=== PATIENT | male | born 1980 | race Caucasian/White ===

== ENCOUNTER 2017-03-18 08:42 | Emergency (ER) | payer SELFPAY ==
[~2017-03-18] VITALS: Ht 165.1 cm; Wt 57.4 kg
[2017-03-18] MEDS ORDERED: SODIUM CHLORIDE 0.9% 1,000ML IVBOLUS ONE (09:30)
[2017-03-18] MEDS ORDERED: DIPH,PERTUSS(ACELL),TET VAC/PF 0.5 ML IM-VACC ONE ×2 (09:30→09:58)
[2017-03-18] MEDS ORDERED: SODIUM CHLORIDE FLUSH 10ML SYR IVF ONE (09:30)
[2017-03-18] MEDS ORDERED: ONDANSETRON 2MG/ML, 2ML ONE (09:58)
[2017-03-18] MEDS ORDERED: MORPHINE SULFATE 4 MG/ML, 1ML ONE (09:58)
[2017-03-18] MEDS ORDERED: ONDANSETRON 2MG/ML, 2ML IVPush ONE (10:00)
[2017-03-18] MEDS ORDERED: MORPHINE SULFATE 4 MG/ML, 1ML IV PRN (10:00)
[2017-03-18] MEDS ORDERED: AMPICILLIN/SULBACTAM 3 GM in SODIUM CHLORIDE 0.9% 100 ML IVPB ONE (10:00)
[2017-03-18 10:10] LABS: BLOOD UREA NITROGEN 12 mg/dL (7-18)
[2017-03-18 11:24] VITALS: BP 135/90
== END 2017-03-18 12:04 | disposition home or self-care (01) ==
LOC: ED 11:59
DX: S62.202A Unspecified fracture of first metacarpal bone, left hand, initial encounter for closed fracture (principal); S62.301A Unspecified fracture of second metacarpal bone, left hand, initial encounter for closed fracture; L03.114 Cellulitis of left upper limb; F12.10 Cannabis abuse, uncomplicated; F17.210 Nicotine dependence, cigarettes, uncomplicated; W51.XXXA Accidental striking against or bumped into by another person, initial encounter; Y93.89 Activity, other specified; Y92.89 Other specified places as the place of occurrence of the external cause; Y99.8 Other external cause status
CPT/HCPCS: 29125; 36415; 80048; 82040; 85025; 87040; 90471; 90715; 96365; 96375; J0295; J2405; J7030

== ENCOUNTER 2017-03-20 07:56 | Day surgery (SDC) | payer SELFPAY ==
[~2017-03-20] VITALS: Ht 165.1 cm; Wt 59.0 kg
[2017-03-20] MEDS ORDERED: ROPIvacaine/PF 0.5%, 30 ML ONE (08:05)
[2017-03-20] MEDS ORDERED: FENTANYL PF 250 MCG/5ML ONE (08:05)
[2017-03-20] MEDS ORDERED: MIDAZOLAM 1 MG/ML, 2ML ONE (08:06)
[2017-03-20 08:26] VITALS: BP 122/79
[2017-03-20] MEDS ORDERED: CEPH500T PO (08:36)
[2017-03-20] MEDS ORDERED: CEFAZOLIN 1,000 MG ONE (08:41)
[2017-03-20] MEDS ORDERED: DEXAMETHASONE 4 MG/ML, 1ML ONE (08:41)
[2017-03-20] MEDS ORDERED: PROPOFOL 10 MG/ML, 20ML ONE (08:41)
[2017-03-20] MEDS ORDERED: KETOROLAC 30 MG/1 ML ONE (08:41)
[2017-03-20] MEDS ORDERED: BUPIVACAINE/PF 0.5% INFIL ONE (08:50)
[2017-03-20] MEDS ORDERED: HYDROmorphone 1 MG/ML, 1ML IV PRN (09:00)
[2017-03-20] MEDS ORDERED: hydrALAzine 20 MG/ML, 1ML IV PRN (09:00)
[2017-03-20] MEDS ORDERED: ALBUTEROL/IPRATROPIUM 2.5MG/0.5MG, 3 ML NPPB PRN (09:00)
[2017-03-20] MEDS ORDERED: METOPROLOL 1 MG/ML, 5ML IV PRN (09:00)
[2017-03-20] MEDS ORDERED: HALOPERIDOL 5 MG/ML IV PRN (09:00)
[2017-03-20] MEDS ORDERED: OXYcodone 5 MG/5 ML ORAL.SOL UDC PO PRN (09:00)
[2017-03-20] MEDS ORDERED: MEPERIDINE/PF 25MG/0.5ML IVPush PRN (09:00)
[2017-03-20] MEDS ORDERED: ACETAMINOPHEN 325 MG TABLET PO PRN (09:00)
[2017-03-20] MEDS ORDERED: BUPIVACAINE/PF 0.5% ONE (09:01)
[2017-03-20] MEDS ORDERED: FENTANYL PF 100 MCG/2ML ONE (09:38)
[2017-03-20] MEDS ORDERED: ACETAMINOPHEN 650 MG/20.3 ML UDC ONE (09:38)
[2017-03-20] MEDS ORDERED: OXYcodone 5 MG/5 ML ORAL.SOL UDC ONE (09:39)
[2017-03-20] MEDS ORDERED: ACETAMINOPHEN 325 MG TABLET ONE (09:39)
[2017-03-20] MEDS: FENTANYL PF 100 MCG/2ML IV PRN ×2 (09:44→09:56)
== END 2017-03-20 11:30 | disposition home or self-care (01) ==
LOC: OUT 07:56
PROVIDERS: ATTEND Orthopaedic Surgery
DX: S62.331A Displaced fracture of neck of second metacarpal bone, left hand, initial encounter for closed fracture (principal); S62.313A Displaced fracture of base of third metacarpal bone, left hand, initial encounter for closed fracture; F17.210 Nicotine dependence, cigarettes, uncomplicated; Y04.0XXA Assault by unarmed brawl or fight, initial encounter; Y93.9 Activity, unspecified; Y92.9 Unspecified place or not applicable; Y99.9 Unspecified external cause status
CPT/HCPCS: 26608; 73120; 76000; J0690; J1100; J1885; J2250; J2704; J2795; J3010; J3490

== ENCOUNTER 2017-03-31 12:41 | Emergency (ER) | payer SELFPAY ==
[~2017-03-31 12:41] MED LIST: CEPH500T PO
[2017-03-31] MEDS ORDERED: HYDROcodone/APAP 5/325 TABLET ONE ×2 (13:43→13:47)
== END 2017-03-31 16:05 | disposition home or self-care (01) ==
LOC: ED 12:41
DX: S62.351A Nondisplaced fracture of shaft of second metacarpal bone, left hand, initial encounter for closed fracture (principal); S62.323A Displaced fracture of shaft of third metacarpal bone, left hand, initial encounter for closed fracture; X58.XXXA Exposure to other specified factors, initial encounter; Y93.79 Activity, other specified sports and athletics; Y99.8 Other external cause status; Y92.328 Other athletic field as the place of occurrence of the external cause
CPT/HCPCS: 29125